=== PATIENT | female | born 1985 | race Caucasian/White ===

== ENCOUNTER → 2021-11-19 | Outpatient (CLI) | payer MEDICAID, SELFPAY ==
--- NOTE | 2021-11-19 09:15 | MRI_ITS ---
STUDY: MRI LUMBAR SPINE WITHOUT CONTRAST REASON FOR EXAM: Female, 36 years old. Radiculopathy TECHNIQUE: Standardized fat and water weighted pulse sequences were obtained in the sagittal and axial planes. COMPARISON: None FINDINGS: T10-T11, T11-T12 and T12-L1: (Sagittal only). Normal endplates. Normal disc height, hydration and morphology. No ventral extradural defects. Normal central canal and bilateral intervertebral neural foramina. Normal lumbar lordosis. There is no substantial scoliosis. Normal conus medullaris that terminates at the upper L1 vertebral body level. L1-2: Normal endplates. Normal disc height, hydration and morphology. Normal bilateral facet joints. Normal central canal and bilateral lateral recesses. Normal bilateral intervertebral neural foramina. L2-3: Normal endplates. Normal disc height, hydration and morphology. Normal bilateral facet joints. Normal central canal and bilateral lateral recesses. Normal bilateral intervertebral neural foramina. L3-4: Normal endplates. Normal disc height, hydration and morphology. Normal bilateral facet joints. Normal central canal and bilateral lateral recesses. Normal bilateral intervertebral neural foramina. L4-5: Normal endplates. Minimal disc space height narrowing. Mild degenerative retrolisthesis of L4 on L5. Mild bilateral degenerative facet arthropathy. Moderate central canal stenosis with an AP canal diameter of 7 mm. Normal bilateral lateral recesses. Normal bilateral intervertebral neural foramina. L5-S1: Normal endplates. Normal disc height and morphology. Mild asymmetric degenerative facet arthropathy. Moderate central canal stenosis surrounded by epidural lipomatosis. The AP canal diameter is 7.6 mm. Normal bilateral lateral recesses. Normal bilateral intervertebral neural foramina. Normal visualized sacral ala. Normal visualized paraspinous soft tissue structures. MRI/Spine Lumbar (Routine) IMPRESSION: 1. No MRI evidence of lumbar extruded disc fragment. 2. Mild degenerative retrolisthesis of L4 on L5 and moderate central canal stenosis with an AP canal diameter 7 mm. 3. Moderate central canal stenosis at L5-S1 disc space level with an AP canal diameter is 7.6 mm. Electronically Signed: Micheal Cruz MD at 14:32 EDT ,
== END | disposition home or self-care (01) ==
LOC: MRI 09:11
PROVIDERS: PCP Student in an Organized Health Care Education/Training Program; Referring Provider Anesthesiology Pain Medicine; Visit Provider Anesthesiology Pain Medicine
DX: M54.16 Radiculopathy, lumbar region (principal)
CPT/HCPCS: 72148

== ENCOUNTER → 2022-03-02 | Outpatient (CLI) | payer MEDICAID, SELFPAY ==
--- NOTE | 2022-03-02 | EMB_PTH ---
PATIENT: ARLENE CARRASQUILLO LOC: [facility] U#:[id number] AGE/SX: 36/F ROOM: RE03/02/[address]: Dr. Lisa Daniel MD : 1985 BED: DIS: 03/02/2022 SPEC #: [id number] RECD: 03/02/22 17:08 STATUS: RICHARD POPE #: [id number] JERI: 03/02/22 00:[address]: Lisa Daniel DEPT: SURGICAL PATHOLOGY RECD BY: Dunia Coreas ENTERED: 03/03/22 08:15 SP TYPE: ENDOM BX/C MARCELA DR: Dr. Clare Castillo MD Tissues: Endometrium, NOS Procedures: Surgery Specimen Level IV HEADER OPERATION: Endometrial biopsy PRE-OP DIAGNOSIS: Abnormal uterine bleeding TISSUE SUBMITTED: Endometrial biopsy MICROSCOPIC DIAGNOSIS Endometrial biopsy: Proliferative endometrium. SJ:vin 03/06/2022 MICROSCOPIC DESCRIPTION Slides are reviewed. GROSS DESCRIPTION Received is one container labeled with the patient's name and not further designated. The specimen consists of multiple irregular fragments of del rio-pink soft tissue that in aggregate measure 1 x 1 x 0.1 cm. The specimen is totally submitted in one cassette. / SJ:vin 03/03/2022 TC:4 CPT: 36737
== END | disposition home or self-care (01) ==
PROVIDERS: PCP Student in an Organized Health Care Education/Training Program; Visit Provider Obstetrics & Gynecology
DX: N93.9 Abnormal uterine and vaginal bleeding, unspecified (principal)
CPT/HCPCS: 88305

== ENCOUNTER → 2022-03-07 | Outpatient (CLI) | payer MEDICAID, SELFPAY ==
[2022-03-07 11:10] LABS: Thyroid Stim Hormone (TSH) 1.79 uIU/mL (0.358-3.74)
== END | disposition home or self-care (01) ==
LOC: PAVLAB 10:06
PROVIDERS: PCP Student in an Organized Health Care Education/Training Program; Referring Provider Obstetrics & Gynecology; Visit Provider Obstetrics & Gynecology
DX: N93.9 Abnormal uterine and vaginal bleeding, unspecified (principal)
CPT/HCPCS: 36415; 84443

== ENCOUNTER 2022-05-02 05:12 | Day surgery (SDC) | payer MEDICAID, SELFPAY ==
[2022-05-02] VITALS (14 sets, daily range): BP systolic 113–148; BP diastolic 67–98; PULSE 84–96; RESP 16–18; TEMP 36.6–37.8; O2SAT 88–100; BMI 35.9
--- NOTE | 2022-05-02 | IMM_PTH ---
PATIENT: ARLENE CARRASQUILLO LOC: [facility] [place] U#:[id number] AGE/SX: 37/F ROOM: RE05/02/[address]: Dr. Lisa Daniel MD : 1985 BED: DIS: 05/02/2022 SPEC #: [id number] RECD: 05/03/22 13:13 STATUS: RICHARD REQ #: [id number] JERI: 05/02/22 00:[address]: Lisa Daniel DEPT: IMMUNOHISTOCHEMISTRY RECD BY: Mary Pride ENTERED: 05/03/22 13:14 SP TYPE: IMMUNO OTHR DR: MD Dr. Clare Mednez MD Tissues: Uterus, NOS Procedures: p16 (initial) KI-67 (add) PHYSICIAN & INSTITUTION [place] [id number] SPECIMEN INFORMATION: Tissue Source: Uterus, hysterectomy Clinical Info: Urinary incontinence, menorrhagia, MARY III, severe dysplasia Specimen Number: [id number] #1 CPT code: 31075, 16344 METHODOLOGY: Deparaffinized sections of prefer/formalin-fixed tissue or PAP/DQ stained slides are incubated with monoclonal/polyclonal antibodies/oligonucleotide probes. Localization is made via biotin free immunoperoxidase method. Appropriate controls are performed and reacted as expected. Results on target cell population are indicated in the following table: RESULTS: ANTIBODY / CLONE RESULT Block 1 P16 (E6H4) positive, block staining Ki-67 (30-9) positive, high These tests were developed and their performance characteristics determined by [facility]. They may not have been cleared or approved by the U.S. Food and Drug Administration. The FDA has determined that such clearance or approval is not necessary. The above immunohistochemical/dualISH markers are ordered and reviewed by the Pathologist. INTERPRETATION: Uterus, hysterectomy: Focal moderate to severe squamous dysplasia. BRANDT:vin 05/04/2022
--- NOTE | 2022-05-02 | HYST_PTH ---
PATIENT: ARLENE CARRASQUILLO [place] [facility] [place][id number] AGE/SX: 37/F ROOM: RE05/02/[address]: Dr. Lisa Daniel MD : 1985 BED: DIS: 05/02/2022 SPEC #: [id number] RECD: 05/02/22 13:11 STATUS: RICHARD POPE #: [id number] JERI: 05/02/22 00:[address]: Lisa Daniel DEPT: SURGICAL PATHOLOGY RECD BY: Pratik Merchant ENTERED: 05/02/22 13:11 SP TYPE: HYSTERECT OTHR DR: MD Dr. Clare Mendez MD Tissues: Uterus, NOS Procedures: Surgery Specimen Level V HEADER OPERATION: ERAS, total vaginal hysterectomy, bilateral salpingectomy PRE-OP DIAGNOSIS: Urinary incontinence, menorrhagia with irregular cycle, MARY III, severe dysplasia TISSUE SUBMITTED: Uterus, cervix, bilateral fallopian tubes MICROSCOPIC DIAGNOSIS Uterus, cervix and bilateral fallopian tubes, vaginal hysterectomy and bilateral salpingectomy: Cervix ? Extensive moderate to severe squamous dysplasia (HGSIL and MARY II-III). - Dysplastic changes also involves the endocervical glands. - Chronic inflammation. - Resection margins are free of dysplastic changes. Endometrium ? proliferative endometrium. Myometrium - no pathologic diagnosis. Bilateral fallopian tubes - no pathologic diagnosis. Paratubal cyst (3.5 cm in greatest dimension). See comment. BRANDT:vin 05/04/2022 COMMENT Immunohistochemistry ([id number]) for surrogate HPV marker (p16) supports the above diagnosis. Case has been reviewed in consultation with Dr. Encinas who concurs with the above diagnosis. IDC:AM MICROSCOPIC DESCRIPTION Slides are reviewed. GROSS DESCRIPTION Received in fixative is one container labeled with the patient's name and designated uterus. The specimen consists of a uterus with attached cervix and two fragments of detached fallopian tube. The uterus with cervix measures 8 x 5 x 4 cm and has previously been opened and weighs 91 gm. The endocervical canal measures 3.2 cm in length and is grossly unremarkable. The triangular endometrial cavity measures 4 x 3 cm. The endometrium is light del rio, velvety and glistening and measures up to 0.2 cm in thickness. The myometrium measures 2.2 cm in average thickness and is free of mass lesions. One fallopian tube measures 5 cm in length and 0.6 cm in average diameter and has a normal fimbrial end. The other fallopian tube measures 4 cm in length and 0.7 cm in diameter and has a normal fimbrial end. Adjacent to this fallopian tube is a paratubal cyst measuring 3.5 x 1 cm and containing clear fluid. [employer] sections are submitted in nine cassettes as follows: 1 - anterior cervix, 2 - posterior cervix, 3 & 4 - anterior uterine wall, 5 & 6 - posterior uterine wall, 7 - one fallopian tube, 8 - the other fallopian tube, 9 - paratubal cyst. / AM:vin 05/02/2022 The rest of the cervix is submitted in seven more cassettes as follows: 10-12 - anterior cervix, 13-16 - posterior cervix. / SJ:vin 05/03/2022 TC:5 CPT: 81005
[2022-05-02 06:20] LABS: Bedside Glucose 143 mg/dL (74-106)
[2022-05-02] MEDS: Lactated Ringers @ 40 MLS/HR 40 ML IV (06:25)
[2022-05-02] MEDS: dexAMETHasone 10 MG/ML Vial 8 MG IV (06:26)
[2022-05-02] MEDS: Magnesium 1 GM over 15 mins IV (06:29)
[2022-05-02] MEDS: Acetaminophen 500 MG Tablet 1000 MG PO ×2 (06:31→12:00)
[2022-05-02] MEDS: Celecoxib 200 MG Capsule 400 MG PO (06:31)
[2022-05-02] MEDS: Phenazopyridine 95 MG Tablet 190 MG PO (06:32)
[2022-05-02] MEDS: Enoxaparin 40 MG/0.4 ML Syringe SC (06:33)
[2022-05-02] MEDS: Gabapentin 600 MG Tablet PO (06:33)
[2022-05-02] MEDS: Scopolamine 1mg/72hr Patch 1 PATCH TD (06:36)
[2022-05-02 06:49] LABS: Internal QC Validated? YES +Cl - CLEAR BKGD; Pregnancy, Urine Negative Negative
--- NOTE | 2022-05-02 07:38 | PCM.HP.BLA ---
History and Physical Intake Visit Reasons:?TVHBS/medicaid form needs signed Chief Complaint: pre op TVHBS Guide Tour Required: No Is patient in pain?: No Allergies hydromorphone [From Dilaudid] Allergy (Mild, Verified 02/14/22 10:10) Rashmorphine Allergy (Mild, Verified 02/14/22 10:10) Rash Medications bupropion HCl 150 mg tablet,12 hr sustained-release tablet PO 02/23/22 [History Confirmed 04/18/22] gabapentin 400 mg capsule ea PO 02/23/22 [History Confirmed 04/18/22] quetiapine 300 mg tablet,extended release 24 hr tablet PO 02/23/22 [History Confirmed 04/18/22] norethindrone acetate 5 mg tablet (Aygestin) 5 mg PO .COMPLEX #30 tabs 03/02/22 [Rx Confirmed 04/18/22] Is last menstrual period known: No Post menopausal: No Patient : No : No PFSH Medical History? Anxiety and depression Manic bipolar I disorder PTSD (post-traumatic stress disorder) Surgical History? Hx of tubal ligation Family History? Mother Asthma Diabetes HypertensionFather Cancer HypertensionGrandmother DiabetesGrandmother Hypertension Social History? Smoking Status:? Current every day smoker alcohol intake:? never substance use type:? does not use caffeine:? Yes seatbelt use:? always do you feel safe at home:? Yes additional social history:? Alfredo- disability Patient is unemployed ? [facility] TVHBS/medicaid form needs signed Details: ARLENE CARRASQUILLO is a 37 year old who presents for preo pappointment planning hysterectomy for AUB and MARY III. Female Reproductive History Menopausal Symptoms: No hot flashes, No night sweats, No difficulty concentrating and No change in libido History ? ? ? 4 ? Elective abortions ? Hx Para ? ? ? 4 ? Spontaneous abortions ? Hx # Term Pregnancies ? Ectopic pregnancies ? Hx # Pregnancies ? Multiple births ? # of living children ? Past Pregnancies Del. Date Name GA/Weeks Outcome Route Bth Weight Gen Labor Lgth Anesthesia Del Locatn Provider FOB Unknown 2000 darrick ? live - full term ? Unknown 2004 Felicia ? live - full term ? Unknown 2006 Riri ? live - full term ? Unknown 2009 David ? live - full term ? ROS Const Constitutional: Denies fatigue, night sweats, weight gain or weight loss ENT ENT: Reports system reviewed and no additional complaints, except as documented Cardio Card: Denies chest pain Resp Resp: Denies cough or dyspnea GI GI: Reports as per HPI; Denies constipation, nausea or vomiting : Reports as per HPI; Denies hot flashes, nipple discharge, vaginal discharge, vaginal dryness, vaginal odor or vaginal pruritus Musc Musc: Denies arthralgias, back pain or muscle weakness Skin Skin/Breast: Denies alopecia, change in hair, dry skin, breast mass, breast pain, breast skin changes or nipple discharge Neuro Neuro: Reports system reviewed and no additional complaints, except as documented Psych Psych: Reports system reviewed and no additional complaints, except as documented; Denies change in libido or difficulty concentrating Endo Endo: Denies cold intolerance, excessive sweating, heat intolerance or polydipsia Daniel/Lymph Hematologic/Lymphatic: Denies easy bleeding, Denies easy bruising and Denies lymphadenopathy Exam Const General: cooperative, healthy appearing, comfortable, no acute distress and well developed Orientation: alert [facility] Head: normal to inspection and normocephalic Ears: hearing grossly normal bilaterally and external ears normal Nose: external nose normal and nares normal Face and sinus: normal facial exam Neck Neck: normal visual inspection and no lymphadenopathy Thyroid: thyroid normal Chest Chest palpation & inspection: normal inspection of the chest Resp Effort & Inspection: normal respiratory effort Auscultation: clear to auscultation bilaterally Cardio Rate: regular rate Rhythm: regular rhythm Heart Sounds: S1 normal and S2 normal GI Inspection: normal to inspection and non-distended Palpation: soft and no hepatosplenomegaly General: bladder normal to palpation External Female Exam: normal external appearance and normal appearance of the urethra Urethra: normal appearance of the urethra, normal palpation and no discharge Speculum Exam - Vagina: normal appearance of the vagina and normal vaginal discharge Speculum Exam - Cervix: normal appearance of the cervix and nontender Bimanual Exam- Vagina & Uterus: normal bimanual exam, uterine size normal, bladder normal to palpation, uterine shape normal, No tender, uterine mobility normal, consistency normal, normal palpation and non-tender Bimanual Exam- Adnexa, other: normal adnexae, adnexae mobile, no masses and normal Pelvic Support: normal Musc Other: gross motor intact no deficits, full bilateral strength Skin General: no rashes or lesions noted Neuro General: patient alert, patient awake, moves all extremities and no focal motor deficits Motor: muscle tone normal throughout Extrem General: normal to inspection and no pedal edema Psych Appearance: grossly normal Mental Status: mental status grossly normal Affect: normal affect Speech and Movement: speech and movement normal Coding Level of Care Code No Charge Diagnoses MARY III (cervical intraepithelial neoplasia grade III) with severe dysplasia? D06.9 Urinary incontinence? R32 Menorrhagia with irregular cycle? N92.1 Assessment and Plan Assessment and Plan (1) MARY III (cervical intraepithelial neoplasia grade III) with severe dysplasia: ?Status:?Acute ?Comment: treatment planned with hysterectomy.? patient counseled regarding colposcopy preop vs immediate treatment, patient wishes to proceed with immediate treatment. (2) Urinary incontinence: ?Status:?Acute ?Comment: urogyn consult. plan combo case TVHBS and sling (3) Menorrhagia with irregular cycle: ?Status:?Acute ?Comment: aygestin now.? failed ocp in past.? plan TVHBS combo case.? obtain US from other office, emb done. Plan After discussing the patient's diagnosis and treatment plan options, patient wishes to proceed with surgical management.? I have discussed with the patient the risks, benefits, and alternatives of the procedure which include but are not limited to risks of anesthesia, bleeding, infection, possible damage to bowel, bladder, or surrounding vasculature which could lead to additional surgery to evaluate any complications.? Patient agrees to procedure and wishes to proceed.? ACOG/uptodate references given for additional information regarding procedure.? .HP
--- NOTE | 2022-05-02 07:39 | OP.PCM_ITS ---
Problems Associated Problem List Diagnoses (1) Urinary incontinence: (2) Menorrhagia with irregular cycle: (3) MARY III (cervical intraepithelial neoplasia grade III) with severe dysplasia: Report of Operation Date of Procedure: 05/02/22 Pre-Operative Diagnosis: see A/P Post-Operative Diagnosis: same Surgery/Procedure Performed:: TVH BS Description of Surgical Findings:: NL UTERUS TUBES OVARIES Surgeon: Lisa Daniel console attendant: Corrie Washington Type of Anesthesia: General Specimen's removed: uterus, tubes Drains: kenney Fluids Replaced: crystalloid Description of Procedure: Patient was taken to the operating room and was placed under general anesthesia was prepped and draped in normal sterile fashion in the dorsal lithotomy position. Preoperative antibiotics and SCDs and Kenney catheter was placed inside the bladder. Weighted speculum was placed in the vagina and the anterior and posterior lip of the cervix was grasped with 2 Jabari clamps and circumferentially injected with dilute vasopressin. A circumferential incision was made with a scalpel and the posterior cul-de-sac was entered into sharply and a longneck speculum was placed. The anterior cul-de-sac was also dissected down and entered into sharply and the uterosacral ligaments were clamped cut and suture ligated bilaterally followed by the cardinal ligaments which were Clamped cut and suture ligated bilaterally with 0 Monocryl. The uterus serially descended and progressive bites were taken bilaterally up to the level of the utero-ovarian ligament bilaterally which was clamped transected and double ligat ed with 0 Monocryl suture and 0 Vicryl free tie. Bilateral fallopian tubes and ovaries were well visualized and noted be within normal limits and the bilateral fallopian tubes were transected across the base with a Shanelle clamp and removed and sutured with 0 Vicryl suture. Excellent hemostasis was noted. [Posterior peritoneum was reapproximated with 2-0 Vicryl and a modified Plummer stitch was placed through the posterior vaginal cuff and bilateral uterosacral ligaments across the posterior cul-de-sac skimming along to provide apical support to the vagina.] The vagina was closed with [id number] 0 Vicryl pop offs including the posterior and anterior peritoneum in the reapproximation. Excellent hemostasis was noted. All instruments removed from the vagina clear urine was noted at the end of the procedure and then Dr Bonilla began her portion. Grafts/Implants Used: none Complications none Admit VTE Documentation VTE Present on Admission: No VTE Mechan Device Prophylaxis: SCD's VTE Pharm Prophylaxis ordered?: Yes Multi Select Codes Urinary/Genital Urinary/Genital CPT Codes: 80776 TVH+BS/O <250gr uterus
[2022-05-02] MEDS: Cefazolin 2 GM in 0.9% Normal Saline 100 ML IV (07:41)
--- NOTE | 2022-05-02 07:42 | DCINST_ITS ---
Discharge Instructions Procedure Hysterectomy, Vaginal Diet Discharge Diet: No restrictions Activity Discharge Activity: Return to Normal Activity, May Not Drive (while taking narcotic pain medications.) and May Shower May resume sexual activity in: 6-8 weeks Dressing / Incision Call your doctor if your incision/area has: Continuous Slow Oozing, Sudden Increased Bleeding, Increased Pain/ Swelling, Increased Redness and Foul Smelling Discharge Call your doctor if you observe: Fever of 101 or Higher, Inability to urinate, Inability to have a bowel movement and Using more than 1 pad per hour Follow Up Care Please Follow Up With: Lisa Daniel MD Test Results: Test results from this visit will be discussed in further detail at your follow- up appointment, if applicable. Discharge Plan Admission Attending Provider: Lisa Daniel Primary Care Provider: Clare Castillo Consulting Providers: Beba Bonilla Discharge Orders/Prescriptions Prescriptions: New oxycodone-acetaminophen [Percocet] 5-325 mg tablet 1 tab PO Q6H PRN (Reason: pain) 7 Days Qty: 20 0RF naproxen [naproxen] 500 mg tablet 500 mg PO BID PRN PRN (Reason: Pain) Qty: 30 1RF Continued quetiapine 300 mg tablet extended release 24 hr 300 tablet PO QHS gabapentin 400 mg capsule 400 mg PO TID Label Comments: TAKE 1 CAPSULE BY MOUTH THREE TIMES DAILY omeprazole 20 mg Capsule,Delayed Release(Dr/Ec) 20 mg PO DAILY Referrals / Follow Up: Clare Castillo MD [Primary Care Provider] - Disposition Disposition (needs filled in before D/C Order can be placed): Home, Self Care
[2022-05-02] MEDS: Vasopressin 20 UNITS/ML Vial (08:45)
[2022-05-02] MEDS: Lactated Ringers 1,000 ML 70 ML IV ×2 (09:01→14:25)
[2022-05-02] MEDS: Ondansetron 4 MG/2 ML Vial IV (09:06)
--- NOTE | 2022-05-02 09:12 | PCM.OPRPT ---
Report of Operation Date of Procedure: 05/02/22 Pre-Operative Diagnosis: Stress urinary incontinence, urethral hypermobility Post-Operative Diagnosis: Same Surgery/Procedure Performed:: Mid urethral sling insertion, cystourethroscopy with bilateral ureteral catheterization Surgeon: Beba Bonilla Type of Anesthesia: General Specimen's removed: None Estimated Blood Loss (mL): 5 cc Description of Procedure: The patient is a 37-year-old female undergoing a hysterectomy with stress urinary incontinence. She has undergone urodynamics testing in the office now presents for surgical intervention. Informed consent has been obtained. The patient was taken to the operating room and placed on the operating room table. Anesthesia monitored the head, neck, airway, IV access and vital signs throughout the case. Once anesthesia was appropriate ministered, the patient was placed into dorsolithotomy position was prepped and draped in usual sterile fashion. She underwent a hysterectomy per Dr. Daniel. At the conclusion of her portion of the case, I was able to perform the mid urethral sling insertion. The mid urethra was isolated and injected submucosally with vasopressin. A midline incision approximately 2 cm in length was then made. Sharp and blunt dissection was performed on either side of the urethra. Care was taken to avoid entry into the vaginal mucosa as well as the urethra. Using the trochars provided, the sling was inserted into the transobturator complexes bilaterally. The mesh was positioned using the tensioning suture against the urethra in a flat manner. The tensioning suture was cut and the incision was closed using running interlocking 2-0 Vicryl. The Goyal catheter was then removed and the cystoscope was inserted through the urethra under direct visualization into the urinary bladder. There was no foreign body identified within the urethra or the bladder. There was no evidence of injury, hemorrhage or bladder mucosal abnormality identified. Each ureteral orifice was intubated gently with a whistle-tip catheter which easily advanced to 20 cm bilaterally without evidence of obstruction or injury. At this time the patient's bladder was emptied and the cystoscope was removed. The patient was awakened and taken to the recovery room in good condition. There were no complications during this procedure. Grafts/Implants Used: Altis mid urethral sling Complications None Admit VTE Documentation VTE Present on Admission: Yes VTE Mechan Device Prophylaxis: SCD's VTE Pharm Prophylaxis ordered?: No Reason prophylaxis not ordered:: Treatment Not Indicated
--- NOTE | 2022-05-02 09:17 | DCINST_ITS ---
Discharge Instructions Diet Discharge Diet: No restrictions Activity Discharge Activity: May Shower May resume sexual activity in: 6-8 weeks Additional Activity Instructions:: No exercise or strenuous activity, no intercourse, no tub bathing, swimming or hot tubs for 4 weeks Dressing / Incision Call your doctor if your incision/area has: Continuous Slow Oozing, Sudden Increased Bleeding, Increased Pain/ Swelling, Increased Redness and Foul Smelling Discharge Call your doctor if you observe: Fever of 101 or Higher, Inability to urinate, Inability to have a bowel movement and Using more than 1 pad per hour Follow Up Care Please Follow Up With: Lisa Daniel MD When: Dr. Bonilla, call office for appointment Test Results: Test results from this visit will be discussed in further detail at your follow- up appointment, if applicable. Discharge Plan Admission Attending Provider: Lisa Daniel Primary Care Provider: Clare Castillo Consulting Providers: Beba Bonilla Discharge Orders/Prescriptions Prescriptions: New oxycodone-acetaminophen [Percocet] 5-325 mg tablet 1 tab PO Q6H PRN (Reason: pain) 7 Days Qty: 20 0RF naproxen [naproxen] 500 mg tablet 500 mg PO BID PRN PRN (Reason: Pain) Qty: 30 1RF Continued quetiapine 300 mg tablet extended release 24 hr 300 tablet PO QHS gabapentin 400 mg capsule 400 mg PO TID Label Comments: TAKE 1 CAPSULE BY MOUTH THREE TIMES DAILY omeprazole 20 mg Capsule,Delayed Release(Dr/Ec) 20 mg PO DAILY Referrals / Follow Up: Clare Castillo MD [Primary Care Provider] - Disposition Disposition (needs filled in before D/C Order can be placed): Home, Self Care
[2022-05-02] MEDS: Ketorolac 30 MG/ML Syringe IV (12:00)
[2022-05-02 12:31] LABS: Hematocrit 40.8 % (37-47); Hemoglobin 13.6 g/dL (12.0-15.0); Mean Corp Hgb Conc 33.3 g/dL (32-36); Mean Corpuscular Hgb 31.8 pg (27.0-32.0); Mean Corpuscular Volume 95.3 fL (81-99); Mean Platelet Vol. 8.4 fl (6.2-12.0); Platelet Count 455 K/mm3 (150-450); RBC Distribution Width CV 12.8 % (11.6-14.6); RBC Distribution Width SD 44.8 fl (35.1-43.9); Red Blood Count 4.28 M/mm3 (4.2-5.4); White Blood Count 15.7 K/mm3 (4.4-11.0)
[2022-05-02] MEDS: oxyCODONE 5 MG Tablet PO (13:07)
== END 2022-05-02 15:39 | disposition home or self-care (01) ==
LOC: SDC 05:13 → AC 05:15
PROVIDERS: Urology; PCP Student in an Organized Health Care Education/Training Program; Referring Provider Obstetrics & Gynecology; Visit Provider Obstetrics & Gynecology
PROC: (CPT 58260; principal; 2022-05-02 07:10)
PROC: (CPT 57260; 2022-05-02 07:10)
DX: N93.9 Abnormal uterine and vaginal bleeding, unspecified (principal); N92.1 Excessive and frequent menstruation with irregular cycle; F17.200 Nicotine dependence, unspecified, uncomplicated; N39.46 Mixed incontinence; R35.1 Nocturia; N81.11 Cystocele, midline; D06.9 Carcinoma in situ of cervix, unspecified; K21.9 Gastro-esophageal reflux disease without esophagitis; F32.A Depression, unspecified; F41.9 Anxiety disorder, unspecified; F43.10 Post-traumatic stress disorder, unspecified
CPT/HCPCS: 57288; 58262; 81025; 82962; 85027; 86850; 86900; 86901; 88307; 88341; 88342; J7120; C1758; J2405; J3475

== ENCOUNTER → 2022-05-15 | Outpatient (CLI) | payer MEDICAID, SELFPAY ==
[2022-05-15 13:09] LABS: Absolute Lymphocyte Count 3.32 X10^3/uL (0.83-4.51); Absolute Neutrophil Count 7.3 X10^3/uL (2.0-7.7); Basophil# 0.09 X10^3/uL; Basophil% 0.8 % (0-1); Eosinophil# 0.26 X10^3/uL; Eosinophils% 2.2 % (0-5); Hematocrit 45.5 % (37-47); Hemoglobin 15.3 g/dL (12.0-15.0); Lymphocyte # 3.32 X10^3/ul (0.83-4.51); Lymphocyte % 28.5 % (19-41); Mean Corp Hgb Conc 33.6 g/dL (32-36); Mean Corpuscular Hgb 31.7 pg (27.0-32.0); Mean Corpuscular Volume 94.2 fL (81-99); Mean Platelet Vol. 8.3 fl (6.2-12.0); Monocyte# 0.65 X10^3/uL; Monocyte% 5.6 % (0-10); NRBC Flagged by Analyzer 0 % (0-5); Neutrophil # 7.29 X10^3/uL (2.7-7.7); Neutrophil % 62.5 % (47-70); Platelet Count 433 K/mm3 (150-450); RBC Distribution Width CV 12.7 % (11.6-14.6); RBC Distribution Width SD 43.7 fl (35.1-43.9); Red Blood Count 4.83 M/mm3 (4.2-5.4); White Blood Count 11.7 K/mm3 (4.4-11.0)
== END | disposition home or self-care (01) ==
LOC: PAVLAB 12:49
PROVIDERS: PCP Student in an Organized Health Care Education/Training Program; Referring Provider Obstetrics & Gynecology; Visit Provider Obstetrics & Gynecology
DX: G89.18 Other acute postprocedural pain (principal); Z90.710 Acquired absence of both cervix and uterus
CPT/HCPCS: 36415; 85025; 87086

== ENCOUNTER → 2022-05-15 | Outpatient (CLI) | payer MEDICAID, SELFPAY ==
--- NOTE | 2022-05-15 16:40 | US_ITS ---
EXAM: US PELVIS TRANSABDOMINAL, COMPLETE CLINICAL INDICATION: post op pelvic pain TECHNIQUE: Transabdominal pelvic ultrasound was performed with grayscale and color Doppler imaging. This report was created using [employer] report [employer] technology. COMPARISON: None. FINDINGS: UTERUS/CERVIX: Uterus is surgically absent. RIGHT OVARY: Right ovary is normal in size and echogenicity measuring 2.9 x 1.3 x 1.8 cm. No mass or dominant cyst. Arterial flow was documented. LEFT OVARY: Left ovary measures 4.5 x 3 x 3.8 cm. There is a 2.4 x 1.9 cm simple cyst. Blood flow is present in the left ovary. FREE FLUID: Trace. BLADDER: Unremarkable as visualized. Wall is normal thickness for degree of distention. US/Transvaginal Non- IMPRESSION: Trace free fluid in the pelvis consistent with recent surgery. Electronically Signed: Joyce Mac MD at 18:54 EDT Reading Location ID and State: [id number] / Tel , Service support ,
--- NOTE | 2022-05-15 16:40 | US_ITS ---
EXAM: US PELVIS TRANSABDOMINAL, COMPLETE CLINICAL INDICATION: post op pelvic pain TECHNIQUE: Transabdominal pelvic ultrasound was performed with grayscale and color Doppler imaging. This report was created using [place] report [employer] technology. COMPARISON: None. FINDINGS: UTERUS/CERVIX: Uterus is surgically absent. RIGHT OVARY: Right ovary is normal in size and echogenicity measuring 2.9 x 1.3 x 1.8 cm. No mass or dominant cyst. Arterial flow was documented. LEFT OVARY: Left ovary measures 4.5 x 3 x 3.8 cm. There is a 2.4 x 1.9 cm simple cyst. Blood flow is present in the left ovary. FREE FLUID: Trace. BLADDER: Unremarkable as visualized. Wall is normal thickness for degree of distention. US/Pelvic (Non ) IMPRESSION: Trace free fluid in the pelvis consistent with recent surgery. Electronically Signed: Joyce Mac MD at 18:54 EDT Reading Location ID and State: [id number] / Tel , Service support ,
== END | disposition home or self-care (01) ==
LOC: US 16:39
PROVIDERS: PCP Student in an Organized Health Care Education/Training Program; Referring Provider Obstetrics & Gynecology; Visit Provider Obstetrics & Gynecology
DX: G89.18 Other acute postprocedural pain (principal); Z90.710 Acquired absence of both cervix and uterus
CPT/HCPCS: 36415; 76830; 76856; 85025; 87086; 87088

== ENCOUNTER → 2024-03-06 | Outpatient (CLI) | payer BC, SELFPAY ==
--- NOTE | 2024-03-06 09:04 | US_ITS ---
INDICATION: monitor ovarian cyst EXAMINATION: Ultrasound US Transvaginal Non-OB TECHNIQUE: Transvaginal (for optimal evaluation of the adnexa) pelvic ultrasound was performed. Grayscale, spectral waveform, and color flow Doppler evaluation of the adnexa. COMPARISON: 05/15/2022 FINDINGS: UTERUS: Surgically absent. RIGHT OVARY: 3.3 x 2.2 x 2.0 cm. Dominant follicle 1.0 cm. Normal Doppler blood flow. LEFT OVARY: 3.0 x 1.6 x 1.5 cm. Dominant follicle 1.1 cm. Normal Doppler blood flow. FREE FLUID: None. US/Transvaginal Non- IMPRESSION: Bilateral ovarian follicles. Status post hysterectomy. Electronically Signed: Marty Vasques MD at 20:28 EDT ,
== END | disposition home or self-care (01) ==
LOC: OPUS 09:04
PROVIDERS: PCP Student in an Organized Health Care Education/Training Program; Referring Provider Obstetrics & Gynecology; Visit Provider Obstetrics & Gynecology
DX: N83.201 Unspecified ovarian cyst, right side (principal)
CPT/HCPCS: 76830

== ENCOUNTER → 2024-03-12 | Outpatient (CLI) | payer BC, SELFPAY | END | disposition home or self-care (01) | LOC: LAB 15:14 | PROVIDERS: PCP Student in an Organized Health Care Education/Training Program; Referring Provider Nurse Practitioner Family; Visit Provider Nurse Practitioner Family | DX: R32 Unspecified urinary incontinence (principal) | CPT/HCPCS: 87086; 87088 ==

== ENCOUNTER 2024-04-09 15:29 | Outpatient (CLI) | payer MEDICAID, SELFPAY ==
[2024-04-16 11:10] LABS: HPV APTIMA, High Risk Negative (Negative)
== END 2024-04-09 23:59 | disposition home or self-care (01) ==
PROVIDERS: PCP Student in an Organized Health Care Education/Training Program; Referring Provider Nurse Practitioner Women's Health; Visit Provider Nurse Practitioner Women's Health
DX: D06.9 Carcinoma in situ of cervix, unspecified (principal)
CPT/HCPCS: 87624; 88175; G0145

== ENCOUNTER → 2025-03-02 | Outpatient (CLI) | payer MEDICAID, SELFPAY ==
--- NOTE | 2025-03-02 13:08 | US_ITS ---
PROCEDURE: PELVIC W/ TRANSVAGINAL REASON FOR EXAM: OVARIAN CYST TECHNIQUE: PELVIC W/ TRANSVAGINAL COMPARISON: Prior study dated March 08, 2024. FINDINGS: Measurements: Uterus: Status post hysterectomy. Right Ovary: 3.2 cm x 3.1 cm x 3.2 cm with a volume of 16.51 mL. Left Ovary: 2.8 cm x 1 cm x 1.4 cm with a volume of 2.13 mL. TRANSABDOMINAL: Uterus: Status post hysterectomy. Right ovary: 2.7 cm 2.6 cm x 2.2 cm complex cyst. Solid components are seen. Follow-up recommended. Left ovary: Normal size and echotexture. Other: No large pelvic mass identified. Transvaginal sonography was performed to further characterize the ovarian findings. TRANSVAGINAL: Right ovary: 2.7 cm 2.6 cm 2.2 cm complex cyst in the right ovary. Follow-up recommended. Left ovary: Normal size and echotexture. Other adnexal findings: None. Cul-de-sac: No free intraperitoneal fluid identified. Tenderness: No tenderness US/Pelvic w/ Transvaginal IMPRESSION: 2.7 cm x 2.6 cm 2.2 cm complex cyst in the right ovary. Follow-up recommended. The patient is status post hysterectomy. Reading Location: [id number]
== END | disposition home or self-care (01) ==
LOC: US 13:07
PROVIDERS: PCP Student in an Organized Health Care Education/Training Program; Referring Provider Obstetrics & Gynecology; Visit Provider Obstetrics & Gynecology
DX: N83.209 Unspecified ovarian cyst, unspecified side (principal)
CPT/HCPCS: 76830; 76856

== ENCOUNTER 2025-03-09 09:59 | Outpatient (CLI) | payer MEDICAID, SELFPAY ==
[2025-03-10 05:07] LABS: Carcinoembryonic Antigen 5.8 ng/mL (0.0-4.7)
== END 2025-03-09 23:59 | disposition home or self-care (01) ==
LOC: BWCLAB 10:01
PROVIDERS: PCP Student in an Organized Health Care Education/Training Program; Referring Provider Obstetrics & Gynecology; Visit Provider Obstetrics & Gynecology
DX: N83.201 Unspecified ovarian cyst, right side (principal); Z80.3 Family history of malignant neoplasm of breast
CPT/HCPCS: 36415; 82378; 86304

== ENCOUNTER → 2025-04-03 | Outpatient (CLI) | payer MEDICAID, SELFPAY ==
--- NOTE | 2025-04-03 12:42 | US_ITS ---
PROCEDURE: PELVIC W/ TRANSVAGINAL REASON FOR EXAM: OVARIAN CYST TECHNIQUE: Procedure Code: [id number] Modality: US Procedure: PELVIC W/ TRANSVAGINAL COMPARISON: Prior study dated March 02, 2025. FINDINGS: Measurements: The patient is status post hysterectomy. Right Ovary: 4.4 cm x 4.2 cm x 3.8 cm with a volume of 37 mL. Left Ovary: 2.9 cm x 1.6 cm x 2.7 cm with a volume of 6.3 mL. TRANSABDOMINAL: Status post hysterectomy Right ovary: There is a 3.7 cm 3 cm 2.7 cm complex cyst in the right ovary. This has increased in size as compared to prior study. Left ovary: Unremarkable Other: No large pelvic mass identified. Transvaginal sonography was performed as transabdominal imaging did not explain the patient's presenting symptoms. TRANSVAGINAL: Status post hysterectomy. Right ovary: Persistent 3.7 cm 3 cm 2.7 cm complex cyst in the right ovary. This has increased in size as compared to prior study. Left ovary: Normal size and echotexture. Other adnexal findings: None. Cul-de-sac: No free intraperitoneal fluid identified. Tenderness: No tenderness US/Pelvic w/ Transvaginal IMPRESSION: Increased size of the complex cyst in the right ovary as described. Clinical c orrelation recommended. Reading Location: [place] [id number]
== END | disposition home or self-care (01) ==
LOC: US 12:25
PROVIDERS: PCP Student in an Organized Health Care Education/Training Program; Referring Provider Obstetrics & Gynecology Gynecologic Oncology; Visit Provider Obstetrics & Gynecology Gynecologic Oncology
DX: R19.00 Intra-abdominal and pelvic swelling, mass and lump, unspecified site (principal)
CPT/HCPCS: 76830; 76856